=== PATIENT | female | born 1965 | race Caucasian/White ===

== ENCOUNTER 2016-05-18 11:07 | Observation (INO) | payer OTHER ==
[2016-05-18] MEDS ORDERED: MIDAZOLAM 2 MG/2 ML VIAL IVP ONE (11:17)
[2016-05-18] MEDS ORDERED: NS 1,000 ML IV ONE (11:17)
[2016-05-18] MEDS ORDERED: HEPARIN 10,000 UNIT/10 ML MDV ONE (11:24)
[2016-05-18] MEDS ORDERED: BUPIVACAINE 0.5% 30 ML SDV ONE (11:24)
[2016-05-18] MEDS ORDERED: ISOPROTERENOL HCL 0.2 MG/ML 5ML AMP ONE (11:24)
[2016-05-18] MEDS ORDERED: LIDOCAINE 1% 30 ML SDV ONE (11:24)
--- NOTE | 2016-05-18 11:41 | CPEKG ---
Heart Rate: 71 RR Interval: 845 P-R Interval: 128 QRSD Interval: 74 QT Interval: 388 QTC Interval: 422 P [place]: 68 QRS [place]: 58 T Wave [place]: 42 EKG Severity - ABNORMAL ECG - EKG Impression: SINUS RHYTHM EKG Impression: PAIRED VENTRICULAR PREMATURE COMPLEXES EKG Impression: Short HI interval EKG Impression: Probable left atrial abnormality EKG Impression: Slow R-wave progression Electronically Signed By: Adal Brantley 18-May-2016 12:17:31
[2016-05-18 12:02] LABS: % IMMATURE GRANULYOCYTES 0.3 % (0.0-1.1); ABSOLUTE IMMATURE GRANULOCYTES 0.04 10^3/uL (0.00-0.10); ADD DIFF? NO; ADD MORPH? NO; ADD SCAN? NO; ATYPICAL LYMPHOCYTE FLAG 10 (0-99); FRAGMENT RBC FLAG 20 (0-99); HEMATOCRIT 41.1 % (38.0-47.0); HEMOGLOBIN 14.4 g/dL (12.6-16.3); LEFT SHIFT FLG 0 (0-99); LIPEMIA HEMOLYSIS FLAG 90 (0-99); MEAN CELL VOLUME 94.3 fL (81.5-99.8); MEAN PLATELET VOLUME 9.7 fL (8.7-11.7); PLATELET CLUMPS FLAG 10 (0-99); PLATELET COUNT 391 10^3/uL (150-400); RED BLOOD CELL COUNT 4.36 10^6/uL (4.18-5.33); RED CELL DISTRIBUTION WIDTH 12.8 % (11.5-15.2)
[2016-05-18 12:09] LABS: INR 0.99 (0.83-1.16)
[2016-05-18 12:10] LABS: APTT 24.3 SEC (23.0-38.0)
[2016-05-18 12:17] LABS: ANION GAP 9 mEq/L (8-16); CALCIUM 9.4 mg/dL (8.5-10.4); CARBON DIOXIDE 25 mEq/l (22-31); CHLORIDE 107 mEq/L (97-110); CREATININE 0.8 mg/dL (0.6-1.0); GLOMERULAR FILTRATION RATE > 60; GLUCOSE 80 mg/dL (70-100); MAGNESIUM 1.8 mg/dL (1.6-2.3); POTASSIUM 4.1 mEq/L (3.5-5.2); SODIUM 141 mEq/L (134-144)
[2016-05-18] MEDS ORDERED: fentaNYL 100 MCG/2 ML INJ ONE (13:08)
[2016-05-18] MEDS ORDERED: PROPOFOL 200 MG/20 ML VIAL ONE (13:09)
[2016-05-18] MEDS ORDERED: PHENYLEPHRINE HCL 100 MCG/ML SYR ONE (13:27)
[2016-05-18] MEDS ORDERED: PHENYLEPHRINE 10 MG/ML SDV ONE ×2 (13:55)
[2016-05-18] MEDS ORDERED: fentaNYL 250 MCG/5 ML INJ ONE (14:12)
[2016-05-18] MEDS ORDERED: ROCURONIUM 50 MG/5 ML VIAL ONE ×2 (14:27)
[2016-05-18] MEDS ORDERED: GLYCOPYRROLATE 0.2 MG/1 ML VIAL ONE (15:33)
[2016-05-18] MEDS ORDERED: OXYCODONE/APAP 5/325 TAB PO PRN (15:45)
[2016-05-18] MEDS ORDERED: ONDANSETRON 4 MG/2 ML VIAL IVP PRN (15:45)
[2016-05-18] MEDS ORDERED: ACETAMINOPHEN 325 MG TAB PO PRN (15:45)
--- NOTE | 2016-05-18 16:13 | CPEKG ---
Heart Rate: 51 RR Interval: 1176 P-R Interval: 120 QRSD Interval: 72 QT Interval: 468 QTC Interval: 432 P [place]: 65 QRS [place]: 64 T Wave [place]: 60 EKG Severity - OTHERWISE NORMAL ECG - EKG Impression: SINUS RHYTHM EKG Impression: LOW VOLTAGE IN FRONTAL LEADS EKG Impression: Short CA interval EKG Impression: Resolution of ventricular ectopy since May 18, 2016, 11:38 Electronically Signed By: Adal Brantley 18-May-2016 20:14:38
[2016-05-18 17:39] LABS: ANION GAP 7 mEq/L (8-16); CALCIUM 8.3 mg/dL (8.5-10.4); CARBON DIOXIDE 21 mEq/l (22-31); CHLORIDE 113 mEq/L (97-110); CREATININE 0.7 mg/dL (0.6-1.0); GLOMERULAR FILTRATION RATE > 60; GLUCOSE 92 mg/dL (70-100); MAGNESIUM 1.7 mg/dL (1.6-2.3); SODIUM 141 mEq/L (134-144)
[2016-05-19 04:37] LABS: ABSOLUTE IMMATURE GRANULOCYTES 0.16 10^3/uL (0.00-0.10); ADD DIFF? NO; ADD MORPH? NO; ADD SCAN? NO; ATYPICAL LYMPHOCYTE FLAG 0 (0-99); FRAGMENT RBC FLAG 0 (0-99); HEMATOCRIT 38.3 % (38.0-47.0); HEMOGLOBIN 13.2 g/dL (12.6-16.3); LEFT SHIFT FLG 0 (0-99); LIPEMIA HEMOLYSIS FLAG 90 (0-99); MEAN CELL HEMOGLOBIN 32.8 pg (27.9-34.1); MEAN CELL HEMOGLOBIN CONCENTR. 34.5 g/dL (32.4-36.7); MEAN CELL VOLUME 95.3 fL (81.5-99.8); MEAN PLATELET VOLUME 10.2 fL (8.7-11.7); PLATELET CLUMPS FLAG 0 (0-99); PLATELET COUNT 332 10^3/uL (150-400); RED BLOOD CELL COUNT 4.02 10^6/uL (4.18-5.33); RED CELL DISTRIBUTION WIDTH 12.9 % (11.5-15.2)
[2016-05-19 04:44] LABS: INR 1.04 (0.83-1.16); PROTIME(PATIENT) 13.5 SEC (12.0-15.0)
[2016-05-19 04:58] LABS: ANION GAP 10 mEq/L (8-16); CALCIUM 8.7 mg/dL (8.5-10.4); CARBON DIOXIDE 20 mEq/l (22-31); CHLORIDE 107 mEq/L (97-110); CREATININE 0.7 mg/dL (0.6-1.0); GLOMERULAR FILTRATION RATE > 60; GLUCOSE 109 mg/dL (70-100); POTASSIUM 4.2 mEq/L (3.5-5.2); SODIUM 137 mEq/L (134-144)
[2016-05-19 05:04] LABS: CREATINE KINASE-MB FRACTION 2.91 ng/mL (0-3.19); TROPONIN I 0.369 ng/mL (0-0.034)
--- NOTE | 2016-05-19 08:42 | CPEKG ---
Heart Rate: 56 RR Interval: 1071 P-R Interval: 128 QRSD Interval: 80 QT Interval: 424 QTC Interval: 410 P [place]: 62 QRS [place]: 71 T Wave [place]: 49 EKG Severity - NORMAL ECG - EKG Impression: SINUS RHYTHM EKG Impression: Short ME interval EKG Impression: Low voltage frontal leads EKG Impression: No significant change from May 18, 2016 Electronically Signed By: Adal Brantley 19-May-2016 14:06:52
[2016-05-19] MEDS ORDERED: CHOLECALCIFEROL VIT D3 2,000 UNITS TAB/CAP PO SCH (09:00)
[2016-05-19] MEDS ORDERED: MULTIVITAMINS W-MINERALS 1 EACH TAB PO SCH (09:00)
[2016-05-19] MEDS ORDERED: VITAMIN E ACETATE 400 UNIT PO SCH (09:00)
[2016-05-19] MEDS ORDERED: MAGNESIUM OXIDE 400 MG TAB PO SCH (09:00)
[2016-05-19] MEDS ORDERED: VITAMIN E PO SCH (09:00)
[2016-05-19] MEDS ORDERED: UBIDECARENONE PO SCH (09:00)
[2016-05-19] MEDS ORDERED: ASPIRIN 325 MG TAB PO SCH (09:00)
[2016-05-19 11:44] VITALS: BP 93/60; PULSE 58; RESP 19; TEMP 98.8; O2SAT 95
[2016-05-19] MEDS ORDERED: PNEUMOCOCCAL 0.5ML VACCINE VIAL IM ONE (13:06)
--- NOTE | 2016-05-19 13:11 | ECHO ---
[id number] + + [address] : : [place] [id number] : : [phone] + + Adult Echocardiographic Report + ------+ :Name: RICKEY INGRAM Marcin Date: 05/19/2016 10:41 AM : : Hospital Admission Number: [id number] Locatio n: 209: :: 1965 Gender: Female Height: 62 in : :Age: 51 yrs Race: WH Weight: 114 lb : :Reason For Study: F/U post EP stuidy : : BSA: 1.5 meters 2 : + ------+ MMode/2D Measurements \T\ Calculations IVSd: 0.72 cm LVIDd: 4.4 cm FS: 38.3 % Ao root diam: LVPWd: 0.76 cm LVIDs: 2.7 cm EDV(Teich): 3.0 cm 89.6 ml LA dimension: ESV(Teich): 3.7 cm 28.0 ml EF(Teich): 68.8 % LVLd ap4: 7.6 cm SV(MOD-sp4): EDV(MOD-sp4): 59.0 ml 80.0 ml LVLs ap4: 5.9 cm ESV(MOD-sp4): 21.0 ml EF(MOD-sp4): 73.8 % Normal Measurement Values: + + :LVIDd (3.5-5.7cm) IVSd (0.6-1.1cm) LVPWd (0.6-1.1cm) Aortic Root (2.0-3.7cm)Left Atrium (1.5-4.0cm): :LV Vol(d) (76-115ml) LV Vol(s) (29-48ml) Ejec Fraction (50-65%)PV Alexander (0.6- 1.2m/s) TV Alexander (0.4-1.0m/s) : :MV E [place] (0.8-1.0m/s)MV A [place] (0.3-1.0m/s)LVOT Alexander (0.7-1.2m/s) Asc Ao Alexander ( 0.9-1.8m/s) : + + Doppler Measurements \T\ Calculations MV E max alexander: 81.9 cm/sec Ao V2 max: 140.3 cm/sec TR max alexander: 193.8 cm/sec MV A max alexander: 46.9 cm/sec Ao max P.9 mmHg TR max P.0 mmHg MV E/A: 1.7 RAP systole: 5.0 mmHg RVSP(TR): 20.0 mmHg Left Ventricle The left ventricle is normal in size. There is normal left ventricular wall thickness. Left ventricular systolic function is normal. Ejection Fraction = 65-70%. No regional wall motion abnormalities noted. Right Ventricle The right ventricle is normal in size and function. Atria The left atrium is moderate to severely dilated. Right atrial size is normal. The atrial septum is aneurysmal. Mitral Valve The mitral valve is normal in structure and function. There is no evidence of mitral valve prolapse. There is no mitral valve stenosis. There is mild mitral regurgitation. Tricuspid Valve Normal tricuspid valve. There is mild to moderate tricuspid regurgitation. Right ventricular systolic pressure is normal. Aortic Valve The aortic valve is trileaflet. The aortic valve opens well. There is no aortic stenosis. There is no aortic insufficiency. Pulmonic Valve The pulmonic valve is normal in structure and function. There is no pulmonic valvular regurgitation. Great Vessels The aortic root is normal size. Pericardium/Pleural There is no pericardial effusion. Conclusion A complete two-dimensional transthoracic echocardiogram was performed (2D, M-mode, Doppler and color flow Doppler). Left ventricular systolic function is normal. Ejection Fraction = 65-70%. There is mild mitral regurgitation. There is mild to moderate tricuspid regurgitation. Right ventricular systolic pressure is normal. There is no pericardial effusion. The atrial septum is aneurysmal. Final Reading Physician: Enoc Wagner signed on 05/19/2016 01:10 PM Ordering Physician: Sander Myers Performed By: Radha Mcginnis RDCS
--- NOTE | 2016-05-19 15:05 | GDS ---
[f rep st] DISCHARGE SUMMARY DISCHARGE DIAGNOSES: 1. Frequent premature ventricular contractions, status post successful premature ventricular contra ction ablation this admission. 2. Ongoing tobacco abuse. PROCEDURES: 1. Electrophysiologic study with premature ventricular contraction ablation. 2. 05/19/2016, echocardiogram which showed ejection fraction of 65% to 70%, mild mitral regurgitati on, [id number] tricuspid regurgitation, normal right ventricular systolic pressure, no pericar dial effusion, aneurysmal atrial septum. BRIEF HISTORY: Please see dictated H and P from our office for complete detail. In brief, the colleen ent is a 51-year-old female who was found to have frequent PVCs on exertion. She saw Dr. Ocasio, and echo and Holter monitoring were obtained. She had a normal echo. On monitoring, she was found to have 32,000 PVCs. She was tried on calcium channel and beta-dinh with no significant improvem ent. She, therefore, opted for a PVC ablation. This was performed on 05/18/2016. On day of discharge, patient denies any groin pain, chest pain or dyspnea. She is noting some mild pain in her right thigh. PHYSICAL EXAMINATION: VITAL SIGNS: On day of discharge, blood pressure 93/60, heart rate 58, respi rations 19, O2 saturation 95% on room air. Temp 98.8 degrees Fahrenheit. GENERAL: She is a very p leasant female in no apparent distress. EYES: Without scleral icterus. HEART: Regular rate and r hythm. LUNGS: Clear. ABDOMEN: Right groin site without bruit, ecchymosis or edema. EXTREMITIES: There are 2+ PT and DP pulses bilaterally. LABORATORY DATA: CBC on day of discharge with WBC 15.57, hemoglobin 13.2, hematocrit 38.3, platelet count 332. BMP with sodium 137, potassium 4.2, chloride 107, CO2 of 20, BUN 11, creatinine 0.7, gl ucose of 109, troponin of 0.369, consistent with recent ablation. RESULTS PENDING: None. DIET: Per previous. ACTIVITY: Groin precautions were reviewed. FOLLOWUP: Scheduled with Dr. Myers in clinic. /[id number]/MODL
--- NOTE | 2016-05-19 16:27 | EPPROC ---
Electrophysiology Procedure Note: All catheters were placed percutaneously using the modified Seldinger technique , and advanced into position under fluoroscopic guidance. One #4 Serbian sheath was placed into the right femoral artery which was later changed to 8F to accommodate the ablation catheter and later when the ablation catheter was placed in the RV, the RFA sheath was used for continuous arterial blood pressure monitoring. Heparin was administered to keep ACT > 250 sec while the catheter was on the LV side. The patient arrived to the electrophysiology laboratory in normal sinus rhythm with frequent PVC. PVC morphology LBBB inferior axis with QRS transition between V3 and V4. PVC frequency was very high at baseline/ . A 4 mm [employer] ablation catheter with a magnetic sensor for the Carto 3D electroanatomic mapping system was used for mapping. Mapping (during PVC) of the right ventricular outflow tract, left ventricular outflow tract, sinuses of Valsalva and anterior interventricular vein identified earliest ventricular activation at RV septum 1 cm below the valve. Ventricular activation began 10 ms before the onset of the QRS complex. Pacematch was 97-98% Observation for 45 minutes after the application of radiofrequency current was performed during isoproterenol administration at graded doses upto 4 mcg/min, and following discontinuation of isoproterenol. Patient was recovered from anesthesia and further observation continued for 45 minutes with patient fully awake. No spontaneous ventricular extra systoles of the primary pattern seen prior to ablation were induced spontaneously or with ventricular burst pacing. There was no ventricular tachycardia inducible. The catheters were removed. Protamine was administered. The patient was transferred to the cardiovascular holding area in stable condition. Vascular access sheaths were removed in the holding area. There were no apparent complications. Results: High frequency of PVCs. Exploration of the LV and RV side demonstrated that PVCs were from RVOT septum below the PV Successful ablation of PVCs. CONCLUSIONS: * Premature ventricular beats originating from RV septum. * Successful catheter mediated ablation of the premature ventricular beats. * No apparent complications. Patient Problems: Problems Problem Status Onset PVC (premature ventricular contraction) Acute
== END 2016-05-19 13:29 | disposition home or self-care (01) ==
LOC: FCATH 11:07 → F2W 15:45
PROVIDERS: ADMIT Internal Medicine Cardiovascular Disease; ATTEND Internal Medicine Cardiovascular Disease
DX: I49.3 Ventricular premature depolarization (principal); Z23 Encounter for immunization; F17.210 Nicotine dependence, cigarettes, uncomplicated; Z88.2 Allergy status to sulfonamides; M54.2 Cervicalgia
CPT/HCPCS: 90471; 93005; 93306; 93623; 93654; C1732; G0378; G0009; J1644; J2250; J2370; J2704; J3010